=== PATIENT | female | born 1990 | race Caucasian/White ===

== ENCOUNTER 2019-07-12 13:06 | Emergency (ER) | payer MEDICAID ==
[2019-07-12 13:35] VITALS: BP 116/82
--- NOTE | 2019-07-12 13:38 | Event Note ---
ED Screening Note Date of service: 07/12/19 Time: 13:33 ED Screening Note: 28 y o took [facility] on 06/16 [facility] was 8 weeks gestation missed f/u appt and [facility] wont see her cc of low pelvic intermittent cramp- 02/24 This initial assessment/diagnostic orders/clinical plan/treatment(s) is/are subject to change based on patients health status, clinical progression and re- assessment by fellow clinical providers in the ED. Further treatment and workup at subsequent clinical providers discretion. Patient/guardian urged not to elope from the ED as their condition may be serious if not clinically assessed and managed. Initial orders include: ua, quant f/u [facility] eval
== END 2019-07-12 14:05 | disposition left against medical advice (07) ==
LOC: ED 13:06
DX: R10.9 Unspecified abdominal pain (principal); Z53.21 Procedure and treatment not carried out due to patient leaving prior to being seen by health care provider
CPT/HCPCS: 36415; 84702; 99283